=== PATIENT | male | born 1995 | race Caucasian/White ===

== ENCOUNTER 2021-08-14 16:41 | Emergency (ER) | payer MEDICARE, OTHER ==
[2021-08-14 16:58] VITALS: BP 119/75; PULSE 100; RESP 18; TEMP 100
[2021-08-14] MEDS ORDERED: IBUPROFEN 600 MG TAB PO STA (17:24)
[2021-08-14] MEDS ORDERED: ACETAMINOPHEN TAB 325 MG TAB PO STA (17:24)
--- NOTE | 2021-08-14 17:56 | ED ---
URI HPI - General Chief Complaint: Upper Respiratory Infection Stated Complaint: covid symptoms Time Seen by Provider: 08/14/21 17:24 Source: patient, RN notes reviewed Mode of arrival: wheelchair Limitations: no limitations - History of Present Illness Initial Comments: Patient is a 26-year-old male that presents to emergency department complaining of upper respiratory tract symptoms and mild fever for about 10 days now. Patient was otherwise a well-appearing in good health 26-year-old male. He notes he just feels under the weather. He notes been taking Tylenol Motrin but hasn't helped much. Patient denied any chest pain shortness of breath headache nausea vomiting diarrhea constipation fever fatigue chills. - Related Data Allergies Allergy/AdvReac Type Severity Reaction Status Date / Time azithromycin Allergy Rash/Hives Verified 08/14/21 16:55 [From Zithromax Z-Jl] Review of Systems ROS Statement: Those systems with pertinent positive or pertinent negative responses have been documented in the HPI. ROS Other: All systems not noted in ROS Statement are negative. Past Medical History Additional Past Medical History / Comment(s): cerebral palsy History of Any Multi-Drug Resistant Organisms: None Reported Past Surgical History: No Surgical Hx Reported Past Psychological History: No Psychological Hx Reported Smoking Status: Current every day smoker Past Alcohol Use History: None Reported Past Drug Use History: Marijuana General Exam Limitations: no limitations General appearance: alert, in no apparent distress Head exam: Present: atraumatic, normocephalic, normal inspection Eye exam: Present: normal appearance, PERRL, EOMI. Absent: scleral icterus, conjunctival injection, periorbital swelling ENT exam: Present: normal exam, mucous membranes moist Neck exam: Present: normal inspection. Absent: tenderness, meningismus, lymphadenopathy Respiratory exam: Present: normal lung sounds bilaterally. Absent: respiratory distress, wheezes, rales, rhonchi, stridor Cardiovascular Exam: Present: regular rate, normal rhythm, normal heart sounds. Absent: systolic murmur, diastolic murmur, rubs, gallop, clicks Extremities exam: Present: normal inspection, full ROM, normal capillary refill. Absent: tenderness, pedal edema, joint swelling, calf tenderness Neurological exam: Present: alert, oriented X3, CN II-XII intact Psychiatric exam: Present: normal affect, normal mood Skin exam: Present: warm, dry, intact, normal color. Absent: rash Course Vital Signs 08/14/21 16:55 Temperature 100 F H Pulse Rate 100 Respiratory 18 Rate Blood Pressure 119/75 O2 Sat by Pulse 97 Oximetry Medical Decision Making - Medical Decision Making 26-year-old male complaining of upper respiratory tract symptoms for 10 days. Covid test ordered and is positive. Patient does not meet criteria for monoclonal antibodies. 650 mg of Tylenol, 600 mg of Motrin ordered. Case discussed with Dr. Joshi. - Lab Data Lab Results 08/14/21 Range/Units 16:59 Coronavirus (PCR) Detected A (Not Detectd) Disposition Clinical Impression: COVID Disposition: HOME SELF-CARE Condition: Stable Instructions (If sedation given, give patient instructions): Coronavirus Disease 2019 (COVID-19) Additional Instructions: Please return to the Emergency Department if symptoms worsen or any other concerns. Follow-up with primary care 1-2 days. Take Tylenol Motrin alternating every 3 hours as needed for fever aches or pains. Is patient prescribed a controlled substance at d/c from ED?: No Referrals: None,Stated [Primary Care Provider] - 1-2 days Time of Disposition: 17:56
== END 2021-08-14 18:08 | disposition home or self-care (01) ==
LOC: EC 16:41
DX: U07.1 COVID-19 (principal); F17.200 Nicotine dependence, unspecified, uncomplicated; F12.90 Cannabis use, unspecified, uncomplicated
CPT/HCPCS: 87635; 99283